=== PATIENT | female | born 1980 | race Caucasian/White ===

== ENCOUNTER 2017-04-08 10:35 | Observation (INO) | payer OTHER ==
[~2017-04-08] VITALS: Ht 157.5 cm; Wt 87.1 kg
[~2017-04-08 10:35] MED LIST: PNV1TABL54 PO
[2017-04-08 11:11] VITALS: BP 113/67
[2017-04-08] MEDS ORDERED: GLYB1.253 PO (11:11)
[2017-04-10 11:58] LABS: GLUCOSE,POINT OF CARE 99 MG/DL (70-110)
== END 2017-04-08 13:25 | disposition home or self-care (01) ==
LOC: 4S 10:35
PROVIDERS: ADMIT Obstetrics & Gynecology; ATTEND Obstetrics & Gynecology
DX: O30.003 Twin pregnancy, unspecified number of placenta and unspecified number of amniotic sacs, third trimester (principal); O26.893 Other specified pregnancy related conditions, third trimester; R10.9 Unspecified abdominal pain; Z3A.37 37 weeks gestation of pregnancy
CPT/HCPCS: 59025; G0378; 82962

== ENCOUNTER 2017-04-11 12:44 | Inpatient (IN) | payer OTHER ==
[~2017-04-11] VITALS: Ht 154.9 cm; Wt 79.4 kg
[~2017-04-11 12:44] MED LIST changes: +GLYB1.253 PO
[2017-04-11] MEDS ORDERED: RINGERS SOLUTION,LACTATED 1,000 ML IV PRN (13:04)
[2017-04-11] MEDS ORDERED: OXYTOCIN 30 UNITS/LACT RINGERS 500 ML IV ONE (13:04)
[2017-04-11] MEDS ORDERED: CITRIC ACID/SODIUM CITRATE 30 ML SOLUTION UDCUP PO PRN (13:15)
[2017-04-11] MEDS ORDERED: METHYLERGONOVINE MALEATE 0.2 MG/ML VIAL IM PRN (13:15)
[2017-04-11] MEDS ORDERED: FentaNYL CITRATE-PF 100 MCG/2 ML VIAL IVP PRN (13:15)
[2017-04-11] MEDS ORDERED: LIDOCAINE HCL/PF 1% 30 ML VIAL INJ PRN (13:15)
[2017-04-11] MEDS ORDERED: METOCLOPRAMIDE HCL 5 MG/ML 2 ML VIAL IVP PRN (13:15)
[2017-04-11 13:42] LABS: BASOPHILS % (AUTO) 0.4 % (0.0-2.0); EOSINOPHILS % (AUTO) 2.5 % (1.0-6.0); HEMATOCRIT 34.5 % (36-46); HEMOGLOBIN 11.4 g/dL (12.0-16.0); LYMPHOCYTES # (AUTO) 1.8 K/uL (1.0-4.8); LYMPHOCYTES % (AUTO) 19.8 % (22.0-44.0); MEAN CORPUSCULAR HEMOGLOBIN 25.3 pg (26.0-34.0); MEAN CORPUSCULAR VOLUME 77 fL (80-100); MONOCYTES # (AUTO) 0.8 K/uL (0.1-1.0); MONOCYTES % (AUTO) 8.6 % (2.0-9.0); NEUTROPHILS # (AUTO) 6.4 K/uL (1.8-7.7); NEUTROPHILS % (AUTO) 68.7 % (40.0-70.0); PLATELET COUNT (AUTO) 277 K/uL (150-450); RED BLOOD CELL COUNT(AUTO) 4.51 MIL/uL (4.00-5.20); RED CELL DISTRIBUTION WIDTH 18.8 % (11.5-14.5); WHITE BLOOD COUNT (AUTO) 9.3 K/uL (4.5-11.0)
[2017-04-11 13:49] VITALS: BP 116/77
[2017-04-11] MEDS ORDERED: FERR-89 PO (13:52)
[2017-04-11] MEDS: RINGERS SOLUTION,LACTATED 1,000 ML IV SCH ×2 (14:17→20:36)
[2017-04-11 14:57] LABS: GLUCOSE,POINT OF CARE 75 MG/DL (70-110)
[2017-04-11 15:34] LABS: RBC MORPHOLOGY COMMENT ABNORMAL RBC MORPH
[2017-04-11] MEDS: DINOPROSTONE 10 MG VAGINAL SUPPOSITORY VG ONE ×2 (16:32→17:08)
[2017-04-11] MEDS ORDERED: OXYTOCIN 30 UNITS/LACT RINGERS 500 ML IV PRN (16:56)
[2017-04-11] MEDS ORDERED: FentaNYL/BUPIV 0.125%/NS/PF 200 ML ED ONE (19:04)
[2017-04-11] MEDS ORDERED: OXYGEN THERAPY IH SCH (20:00)
[2017-04-11] MEDS ORDERED: FentaNYL/BUPIV 0.125%/NS/PF 200 ML ED PRN (20:57)
[2017-04-11] MEDS ORDERED: ONDANSETRON HCL 4 MG/2 ML VIAL IVP PRN (21:00)
[2017-04-11] MEDS ORDERED: NALBUPHINE HCL 10 MG/ML VIAL IVP PRN (21:00)
[2017-04-12] MEDS ORDERED: ROPIVACAINE HCL 0.2% 100 ML ED ONE (02:43)
[2017-04-12] MEDS ORDERED: -PHARMACY NOTE- MISC ONE ×2 (03:30)
[2017-04-12] MEDS: RINGERS SOLUTION,LACTATED 1,000 ML IV SCH (05:07)
[2017-04-12] MEDS ORDERED: MISOPROSTOL 100 MCG TABLET ONE (06:41)
[2017-04-12] MEDS ORDERED: OXYTOCIN 30 UNITS/LACT RINGERS 500 ML IV ONE (07:22)
[2017-04-12] MEDS ORDERED: BENZOCAINE 20%/MENTHOL 56 GM SPRAY CANISTER TP PRN (07:30)
[2017-04-12] MEDS ORDERED: LIDOCAINE HCL/PF 1% 30 ML VIAL INJ PRN (07:30)
[2017-04-12] MEDS ORDERED: LANOLIN 7 GM OINTMENT TP PRN (07:30)
[2017-04-12] MEDS ORDERED: OxyCODONE HCL/ACETAMINOPHEN 5-325 MG TABLET PO PRN ×2 (07:30)
[2017-04-12] MEDS ORDERED: GLYCERIN/WITCH HAZEL LEAF 40 PADS JAR TP PRN (07:30)
[2017-04-12] MEDS: MAGNESIUM HYDROXIDE SUSPENSION 30 ML UDCUP PO PRN ×2 (08:42→20:51)
[2017-04-12] MEDS: IBUPROFEN 800 MG TABLET PO PRN (16:19)
[2017-04-13 06:18] LABS: BASOPHILS # (AUTO) 0.05 K/uL (0.00-0.20); BASOPHILS % (AUTO) 0.4 % (0.0-2.0); EOSINOPHILS # (AUTO) 0.28 K/uL (0.00-0.70); EOSINOPHILS % (AUTO) 2.22 % (1.0-6.0); HEMATOCRIT 29.5 % (36-46); HEMOGLOBIN 9.2 g/dL (12.0-16.0); LYMPHOCYTES # (AUTO) 2.7 K/uL (1.0-4.8); LYMPHOCYTES % (AUTO) 21.9 % (22.0-44.0); MEAN CORPUSCULAR HGB CONC 31.3 G/dL (31.0-37.0); MEAN CORPUSCULAR VOLUME 80 fL (80-100); MONOCYTES # (AUTO) 1.3 K/uL (0.1-1.0); MONOCYTES % (AUTO) 10.4 % (2.0-9.0); NEUTROPHILS # (AUTO) 8.1 K/uL (1.8-7.7); NEUTROPHILS % (AUTO) 65.1 % (40.0-70.0); RED BLOOD CELL COUNT(AUTO) 3.69 MIL/uL (4.00-5.20); RED CELL DISTRIBUTION WIDTH 19.5 % (11.5-14.5); WHITE BLOOD COUNT (AUTO) 12.5 K/uL (4.5-11.0)
[2017-04-13] MEDS: MAGNESIUM HYDROXIDE SUSPENSION 30 ML UDCUP PO PRN (08:20)
[2017-04-13] MEDS: IBUPROFEN 800 MG TABLET PO PRN (08:20)
[2017-04-13] MEDS ORDERED: IBUP-1547 PO (11:44)
[2017-04-13] MEDS ORDERED: DSS100 PO (11:44)
[2017-04-13] MEDS ORDERED: FERR-89 PO (11:45)
[2017-04-13 13:02] LABS: RBC MORPHOLOGY COMMENT ABNORMAL RBC MORPH
== END 2017-04-13 12:30 | disposition home or self-care (01) | DRG 775 ==
LOC: OBSVTOIN 12:44 → 4S 12:44
PROVIDERS: ADMIT Obstetrics & Gynecology; ATTEND Obstetrics & Gynecology
PROC: 10D07Z6 Extraction of Products of Conception, Vacuum, Via Natural or Artificial Opening (ICD-10-PCS; principal; 2017-04-12)
PROC: 0KQM0ZZ Repair Perineum Muscle, Open Approach (ICD-10-PCS; 2017-04-12)
PROC: 3E0S3CZ (ICD-10-PCS; 2017-04-12)
PROC: 00HU33Z Insertion of Infusion Device into Spinal Canal, Percutaneous Approach (ICD-10-PCS; 2017-04-12)
DX: O24.429 Gestational diabetes mellitus in childbirth, unspecified control (principal); O77.0 Labor and delivery complicated by meconium in amniotic fluid; O70.1 Second degree perineal laceration during delivery; Z37.2 Twins, both liveborn; Z3A.38 38 weeks gestation of pregnancy; O09.523 Supervision of elderly multigravida, third trimester
CPT/HCPCS: 82962; 86850; 86900; 86901; J2590; J2795; J3490; J7120